=== PATIENT | female | born 1965 | race Caucasian/White ===

== ENCOUNTER 2018-02-05 10:17 | Emergency (ER) | payer BC ==
[2018-02-05] MEDS ORDERED: Albuterol/Ipratropium NEB.SOL* Albuterol 2.5 MG/Ipratropium 0.5 MG 3 ML INH ONE (10:57)
--- NOTE | 2018-02-05 11:01 | ED ---
Respiratory - HPI Summary HPI Summary: Patient is a 53-year-old female with a history of Gitelman syndrome and diabetes presenting to the ED with chief complaint of midsternal chest pressure and pain with cough which has been present for approximately 8 days. She was diagnosed at [address] [place] [address] urgent care 4 days ago with a pneumonia, but no x-ray was done. She was placed on Levaquin and has been on this medication for 3 days, stating this has not improved her symptoms. She is now complaining of bright blood tinged sputum which is small in amount. She denies any cardiac history, but due to her chronic low potassium, she states it is easy for her to have changes to her EKG. she was also prescribed prednisone, but stopped taking this due to increased levels to her glucose of > 600. She states she was given a nebulizer treatment at [address] [place] [address], which improved her symptoms approximately 50% . She feels symptoms may be worsening with lying flat and has been needing to sleep on several pillows for the past 3-4 months. She also endorses mid back pain. She has not tried any other medication for relief. - History of Current Complaint Chief Complaint: EDUpperRespComplaint Stated Complaint: POSSIBLE PNUEMONIA Time Seen by Provider: 02/05/18 10:36 Hx Obtained From: Patient Onset/Duration: Sudden Onset Timing: Constant Initial Severity: Moderate Current Severity: Moderate Pain Intensity: 7 Character: Cough (Productive) Sputum Amount: Small Sputum Color: Yellow, Green, Red Specks Aggravating Factor(s): URI, Recumbent Position Alleviating Factor(s): Neb. Bronchodilators (Frequency Of Use) - once, Upright Position, Other - Antibiotics without significant improvement Associated Signs and Symptoms: URI, Chest Pain with Cough, Dyspnea, Pleuritic Chest Pain, Hemoptysis - Risk Factors Status Asthmaticus Risk Factors: Recent Steroids Tuberculosis Risk Factors: Corticosteriod Use, Diabetes - Allergy/Home Medications Allergies/Adverse Reactions: Allergies Allergy/AdvReac Type Severity Reaction Status Date / Time No Known Allergies Allergy Verified 02/05/18 10:26 Home Medications: Home Medications Atorvastatin* [Lipitor*] 20 mg PO DAILY 02/05/18 [History Confirmed 02/05/18] Insulin GLARGINE(*) [Lantus(*)] 40 units SUBCUT BEDTIME 02/05/18 [History Confirmed 02/05/18] Insulin Regular, Human [Novolin R Relion] 45 unit SUBCUT DAILY 02/05/18 [ History Confirmed 02/05/18] Levofloxacin TAB* [Levaquin TAB*] 750 mg PO DAILY 02/05/18 [History Confirmed ] Losartan TAB* [Cozaar TAB*] 100 mg PO DAILY 02/05/18 [History Confirmed 02/05/18 ] Magnesium Oxide TAB* [MagOx 400 TAB*] 400 mg PO BID AC 02/05/18 [History Confirmed 02/05/18] Potassium Chlor TAB* [Klor Con ER TAB*] 60 meq PO BID AC 02/05/18 [History Confirmed 02/05/18] PMH/Surg Hx/FS Hx/Imm Hx Previously Healthy: No - diabetes and Gitelman syndrome Infectious Disease History: No Infectious Disease History: Denies: Traveled Outside the [place] in Last 30 Days - Social History Occupation: Employed Full-time Lives: With Family Alcohol Use: None Hx Substance Use: No Substance Use Type: Reports: None Hx Tobacco Use: No Smoking Status (MU): Never Smoked Tobacco Review of Systems Positive: Fatigue. Negative: Fever, Chills Negative: Blurred Vision Negative: Epistaxis, Dental Pain, Sore Throat, Ear Ache, Nasal Discharge Positive: Chest Pain. Negative: Palpitations Positive: Shortness Of Breath, Cough Negative: Abdominal Pain, Vomiting, Diarrhea Positive: no symptoms reported, see HPI Skin: Negative Neurological: Negative All Other Systems Reviewed And Are Negative: Yes Physical Exam Triage Information Reviewed: Yes Vital Signs On Initial Exam: Initial Vitals Temp Pulse Resp BP Pulse Ox 96.9 F 86 16 133/89 98 02/05/18 10:20 02/05/18 10:20 02/05/18 10:20 02/05/18 10:20 02/05/18 10:20 Vital Signs Reviewed: Yes Appearance: Positive: Well-Appearing, Well-Nourished Skin: Positive: Warm, Skin Color Reflects Adequate Perfusion Head/Face: Positive: Normal Head/Face Inspection Eyes: Positive: EOMI, RACHEL, Conjunctiva Clear Neck: Positive: Supple, No Lymphadenopathy Respiratory/Lung Sounds: Positive: Clear to Auscultation, Breath Sounds Present Cardiovascular: Positive: RRR, Pulses are Symmetrical in both Upper and Lower Extremities Musculoskeletal: Positive: Normal, Strength/ROM Intact Neurological: Positive: Sensory/Motor Intact, Alert, Oriented to Person Place, Time, Speech Normal Psychiatric: Positive: Normal, Affect/Mood Appropriate AVPU Assessment: Alert Diagnostics - Vital Signs Vital Signs Temp Pulse Resp BP Pulse Ox 02/05/18 10:20 96.9 F 86 16 133/89 98 - Laboratory Result Diagrams: 02/05/18 10:50 02/05/18 10:50 Lab Statement: Any lab studies that have been ordered have been reviewed, and results considered in the medical decision making process. Disposition - Course Course Of Treatment: During the course of treatment, the patient is evaluated for persistent cough with mild hemoptysis today, which cough has been present 8 days. She has been on Levaquin 3 days and continues to feel midsternal chest pressure, worse with lying flat. She has not had a chest x-ray at this time. Labs obtained and are unremarkable. Chest x-ray obtained which shows no active cardiopulmonary disease. There is no evidence of hypokalemia although patient states she has this chronically. EKG is normal sinus rhythm and shows no QT prolongation. I have advised she discontinue her Levaquin she has no evidence of pneumonia. She likely has an inflammation of the bronchioles, but I do not believe at this time it is safe to provide steroid as this will increase her glucose levels. She is given duo nebs and a prescription for a DuoNeb machine. She is also given Tessalon pearls for cough. Due to the inflammation, I have advised she take Toradol as prescribed. She is okay with this plan and discharged. She understands to return for any fevers, worsening cough with sputum production or shortness of breath. DuoNeb provided. - Differential Dx - Cardiopulmonary Differential Diagnoses - Cardiopulmonary: Chest Wall Pain - Diagnoses Provider Diagnoses: Bronchitis Discharge - Sign-Out/Discharge Documenting (check all that apply): Discharge - Discharge Plan Condition: Stable Disposition: HOME Prescriptions: Albuterol/Ipratropium NEB.AUDREY* [Duoneb (Albuterol 2.5 MG/Ipratropium 0.5 MG)] 1 neb INH Q6H PRN #20 neb.audrey PRN Reason: Sob/Wheezing Benzonatate CAP* [Tessalon CAP*] 100 mg PO TID #21 cap Ketorolac TAB * [Toradol TAB *] 10 mg PO Q6H #16 tab Patient Education Materials: Upper Respiratory Infection (ED), Shortness of Breath (ED) Referrals: Aaron Noland MD [Primary Care Provider] - Additional Instructions: [id number] Robitussin as prescribed Tessalon up to 3 times daily for cough DuoNeb every 6 hours as needed for any shortness of breath Please follow-up with your PCP If he develop any fevers, worsening cough despite the medications with sputum production or other new symptoms, return to the ED Toradol 4 times daily for midsternal chest pain Do not take any NSAIDs including ibuprofen, Motrin, naproxen while taking the Toradol medication - Billing Disposition and Condition Condition: STABLE Disposition: HOME
[2018-02-05 11:02] LABS: ABS Basophils 0.1 10^3/ul (0-0.2); ABS Eosinophils 0.2 10^3/ul (0-0.6); ABS Lymphocytes 2.1 10^3/ul (1.0-4.8); ABS Monocytes 0.4 10^3/ul (0-0.8); ABS Neutrophils 3.6 10^3/ul (1.5-7.7); ABS Nucleated RBC 0 10^3/ul; Eosinophil % 3.2 % (0-6); Hematocrit 40 % (35-47); Hemoglobin 13.4 g/dl (12.0-16.0); Lymphocyte % 33.1 % (25-47); Mean Corpuscular HGB Conc 34 g/dl (31-36); Mean Corpuscular Hemoglobin 30 pg (27-31); Mean Corpuscular Volume 89 fL (80-97); Mean Platelet Volume 8.1 um3 (7.4-10.4); Nucleated Red Blood Cells % 0; Platelet Count 270 10^3/ul (150-450); Red Blood Count 4.43 10^6/ul (4.0-5.4); Red Cell Distribution Width 15 % (10.5-15); White Blood Count 6.4 10^3/ul (3.5-10.8)
[2018-02-05] MEDS ORDERED: Ketorolac INJ* 60 MG/2 ML VIAL IM ONE (11:18)
[2018-02-05 11:22] LABS: EGFR Non-African American 49.6 (>60)
--- NOTE | 2018-02-05 12:21 | RAD ---
HISTORY: Shortness of breath COMPARISONS: None VIEWS: 4: Frontal dual-energy and lateral views of the chest. FINDINGS: CARDIOMEDIASTINAL SILHOUETTE: The cardiomediastinal silhouette is normal. RINKU: The rinku are normal. PLEURA: The costophrenic angles are sharp. No pleural abnormalities are noted. LUNG PARENCHYMA: The lungs are clear. ABDOMEN: The upper abdomen is clear. There is no subphrenic gas. BONES AND SOFT TISSUES: Degenerative changes are noted of the spine OTHER: None. IMPRESSION: NO ACTIVE CARDIOPULMONARY DISEASE.
[2018-02-05 13:04] VITALS: BP 134/84
== END 2018-02-05 12:54 | disposition home or self-care (01) ==
LOC: ED 10:17
DX: J40 Bronchitis, not specified as acute or chronic (principal); N15.8 Other specified renal tubulo-interstitial diseases; E11.9 Type 2 diabetes mellitus without complications; E87.6 Hypokalemia; Z79.4 Long term (current) use of insulin
CPT/HCPCS: 36415; 71046; 80053; 83605; 83880; 84484; 85025; 93005; 94640; 96372; 99283; A9270-GY; J1885